=== PATIENT | male | born 1975 | race Hispanic/Latino ===

== ENCOUNTER 2017-06-17 07:24 | Day surgery (SDC) | payer OTHER, MEDICARE ==
[~2017-06-17] VITALS: Ht 162.6 cm; Wt 57.8 kg
[~2017-06-17 07:24] MED LIST: ALEN70TA47 PO; DULO20CA17 PO; SODIUM CHLORIDE 0.9% 1000ML 1,000 ML IV ONE
[2017-06-17 08:34] VITALS: BP 126/72
[2017-06-17] MEDS ORDERED: PROPOFOL 10 MG/ML 20ML VIAL IV ONE (09:58)
[2017-06-17 10:09] VITALS: BP 109/72
== END 2017-06-17 11:00 | disposition home or self-care (01) ==
LOC: DAH 07:24
PROVIDERS: ATTEND Internal Medicine Gastroenterology
DX: K29.50 Unspecified chronic gastritis without bleeding (principal); G43.909 Migraine, unspecified, not intractable, without status migrainosus; K21.9 Gastro-esophageal reflux disease without esophagitis; Z82.49 Family history of ischemic heart disease and other diseases of the circulatory system; Z83.3 Family history of diabetes mellitus
CPT/HCPCS: 43239; 88305; 88312; A4606; J2704; J7030

== ENCOUNTER → 2022-09-02 | Outpatient (CLI) | payer OTHER, MEDICARE ==
[~2022-09-02] MED LIST changes: -ALEN70TA47 PO; +ALEN70TA80 PO; -DULO20CA17 PO; +DULO20CA18 PO; +IOHEXOL 350 MG/ML 100ML INFUS..BTL IV ONE; +METOPROLOL TARTRATE 1 MG/ML 5ML VIAL IV ONE; +NITROGLYCERIN 4.1 GM SPRAY TL ONE; -SODIUM CHLORIDE 0.9% 1000ML 1,000 ML IV ONE
== END | disposition home or self-care (01) ==
LOC: RAH 09:25
PROVIDERS: ATTEND Internal Medicine Cardiovascular Disease
DX: R06.02 Shortness of breath (principal); I20.9 Angina pectoris, unspecified
CPT/HCPCS: 75574; J3490; Q9967

== ENCOUNTER 2024-04-18 08:02 | Day surgery (SDC) | payer OTHER, MEDICARE ==
[~2024-04-18] VITALS: Ht 167.6 cm; Wt 61.2 kg
[2024-04-18] VITALS (10 sets, daily range): BP systolic 118–143; BP diastolic 76–89; PULSE 74–92; RESP 15–18; TEMP 97–98.2
[~2024-04-18 08:02] MED LIST changes: -IOHEXOL 350 MG/ML 100ML INFUS..BTL IV ONE; -METOPROLOL TARTRATE 1 MG/ML 5ML VIAL IV ONE; -NITROGLYCERIN 4.1 GM SPRAY TL ONE
[2024-04-18] MEDS: 0.9%NACL 1000ML 1,000 ML IV ONE (11:22)
[2024-04-18] MEDS ORDERED: proPOFol 10 MG/ML 20ML VIAL IV ONE (12:53)
== END 2024-04-18 13:55 | disposition home or self-care (01) ==
LOC: ENDO 08:02 → DAH 08:02 → ENDO 13:55
PROVIDERS: ATTEND Internal Medicine Gastroenterology
DX: R13.10 Dysphagia, unspecified (principal); K29.50 Unspecified chronic gastritis without bleeding; K22.70 Barrett's esophagus without dysplasia; K31.84 Gastroparesis; K59.04 Chronic idiopathic constipation; K62.89 Other specified diseases of anus and rectum; F32.A Depression, unspecified
CPT/HCPCS: 43239; 43248; J7030 ×2; J2704; A4620; A4215; A4223; A7002; A4222; A4221; A4663; A4606; J3490